=== PATIENT | female | born 1990 | race Caucasian/White ===

== ENCOUNTER → 2016-09-23 | Outpatient (CLI) | payer OTHER ==
--- NOTE | 2016-09-23 16:13 | US ---
EXAMINATION TYPE: US OB anatomy transabd DATE OF EXAM: 09/23/2016 3:40 PM COMPARISON: In pacs HISTORY: 25-year-old female Small for dates, 2, para 1 TECHNIQUE: Transabdominal (TA) scanning. FINDINGS: EXAM MEASUREMENTS: GESTATIONAL AGE / DATING Physician Established: (37 weeks/0 days) EDC: 10/14/2016 Dates by LMP: (37 weeks/0 days) EDC: 10/14/2016 Dates by First Scan: (37 weeks/0 days) EDC: 10/07/2016 Dates by Current Scan for: (36 weeks/0 days) EDC: 10/21/2016 SURVEY IUP: Single PLACENTA: Fundal / Anterior PREVIA: No previa BRITTANY: 14.0 cm Normal CERVICAL LENGTH (transabdominal: norm > 3.0cm): 3.3 cm BIOMETRY PRESENTATION: Vertex BPD: 8.9 cm 36 weeks / 1 days HC: 31.6 cm 35 weeks / 4 days AC: 31.6 cm 35 weeks / 4 days FL: 7.1 cm 36 weeks / 3 days ESTIMATED WEIGHT IN GRAMS: 2771 grams ESTIMATED WEIGHT IN LBS/OZS: 6 lbs. 2 oz. WEIGHT PERCENTAGE BASED ON ESTABLISHED DATE: 25 % HC/AC: 1.00 Normal FL/AC: 22% Normal HEART RATE: 142 bpm RHYTHM: Normal ANATOMY SEEN (within normal limits): Midline Falx Cavus Septi Pellucidi Stomach Nose / Lips Diaphragm Bladder Three Vessel Cord ANATOMY NOT SEEN OR SUBOPTIMALLY VISUALIZED: Due to advanced age, 3rd trimester Lateral Vent (< 1 cm) Cisterna Magna (< 1.1 cm) Cerebellum (varies with age) Choroid Plexus (bilateral) Four Chamber Heart Outflow Tract: RVOT/LVOT Situs Kidneys (only one seen. The second is shadowed out) Cord Insert Longitudinal Spine Transverse Spine Arms (bilateral) Legs (bilateral) IMPRESSION: 1. Single live intrauterine with estimated gestational age of 37 weeks 0 days by LMP. [facility] ultrasound biometry is concordant (36 weeks 0 days) placing the child at the 25th percentile for w eight. 2. A number of structures on the survey were either not seen or were suboptimally visualized du e to relatively advanced age. See above.
== END | disposition home or self-care (01) ==
LOC: RADUSWWP 15:11
PROVIDERS: ATTEND Obstetrics & Gynecology
DX: O36.5930 Maternal care for other known or suspected poor fetal growth, third trimester, not applicable or unspecified (principal); Z3A.37 37 weeks gestation of pregnancy
CPT/HCPCS: 76805

== ENCOUNTER 2016-10-11 14:13 | Inpatient (IN) | payer OTHER ==
[2016-10-11] MEDS ORDERED: CARBOPROST TROMETHAMINE 250 MCG/ML 1 ML AMP IM PRN (14:46)
[2016-10-11] MEDS ORDERED: METHYLERGONOVINE 0.2 MG/ML 1 ML AMP IM PRN (14:46)
[2016-10-11] MEDS ORDERED: LIDOCAINE 1% (PF) 10 MG/ML (30 ML SDV) SQ PRN (14:46)
[2016-10-11] MEDS ORDERED: OXYTOCIN 10 UNIT/ML 1 ML VIAL IM PRN (14:46)
[2016-10-11] MEDS ORDERED: TERBUTALINE 1 MG/ML VIAL SQ PRN (14:46)
[2016-10-11] MEDS ORDERED: LACTATED RINGERS 1,000 ML IV SCH (15:00)
[2016-10-11] MEDS ORDERED: diphenhydrAMINE 50 MG/ML 1 ML VIAL IVP PRN (15:27)
[2016-10-11] MEDS ORDERED: diphenhydrAMINE 25 MG CAP PO PRN (15:27)
[2016-10-11] MEDS ORDERED: Acetaminophen-Codeine 300-30mg TAB PO PRN ×2 (15:27)
[2016-10-11] MEDS ORDERED: HYDROCORTISONE 2.5% RECTAL CREAM 30 GM TUBE RECTAL PRN (15:27)
[2016-10-11] MEDS ORDERED: SIMETHICONE 80 MG CHEWABLE PO PRN (15:27)
[2016-10-11] MEDS ORDERED: ZOLPIDEM 5 MG TAB PO PRN (15:27)
[2016-10-11] MEDS ORDERED: ACETAMINOPHEN TAB 325 MG TAB PO PRN (15:27)
[2016-10-11] MEDS ORDERED: WITCH HAZEL 1 EACH MED..PAD TOPICAL PRN (15:27)
[2016-10-11] MEDS ORDERED: LANOLIN CREAM 5 GM TUBE TOPICAL PRN (15:27)
[2016-10-11] MEDS ORDERED: BENZOCAINE/MENTHOL SPRAY 1 GM/SPRAY AEROSOL TOPICAL PRN (15:27)
[2016-10-11] MEDS ORDERED: BISACODYL 10 MG SUPP RECTAL PRN (15:27)
[2016-10-11] MEDS ORDERED: OXYTOCIN 30 UNITS/500 ML NS 30 UNIT in SALINE 1 500ML.BAG IV SCH (15:30)
--- NOTE | 2016-10-11 15:34 | P.HPOB ---
History of Present Illness H&P Date: 10/11/16 Chief Complaint: Contractions This patient is a pleasant 25-year-old 2 para 1 female estimated date of confinement 10/14/2016 estimated gestational age 39-4/7 weeks who presents to labor and delivery with complaints of contractions. Patient is here earlier spinal was 2 summary is dilated and now returns 6 cm dilated in active labor. care has been uncomplicated with the exception of surveillance for small for gestational age. She denies any bleeding or leaking of fluid. Review of Systems Constitutional: Denies chills, Denies fever Ears, nose, mouth and throat: Denies headache, Denies sore throat Cardiovascular: Denies chest pain, Denies shortness of breath Respiratory: Denies cough Gastrointestinal: Reports heartburn Genitourinary: Reports Menstruation: Reports amenorrhea Musculoskeletal: Denies myalgias Neurological: Denies numbness, Denies weakness Past Medical History Past Medical History: No Reported History Additional Past Medical History / Comment(s): viral eye infection - vision loss right History of Any Multi-Drug Resistant Organisms: None Reported Past Surgical History: Adenoidectomy Past Anesthesia/Blood Transfusion Reactions: No Reported Reaction Past Psychological History: No Psychological Hx Reported Smoking Status: Never smoker Past Alcohol Use History: Occasional Past Drug Use History: None Reported Medications and Allergies Home Medications Medication Instructions Recorded Confirmed Type Pnv with Ca,No.72/Iron/FA 1 each PO 10/11/16 History [ Plus Tablet] Allergies Allergy/AdvReac Type Severity Reaction Status Date / Time No Known Allergies Allergy Verified 10/11/16 09:18 Exam - Vital Signs Vital signs: Intake and Output 10/11/16 10/11/16 10/11/16 06:59 14:59 22:59 Other: Weight 88.451 kg Patient Weight 10/12/16 06:59 Weight 88.451 kg - OBG Physical Exam Abdomen: bowel sounds normal, no diffuse tenderness, no bruit present, no guarding noted, no hepatomegaly, no splenomegaly, no mass Vulva: both: normal Vagina: normal moisture, no discharge Cervix: Cervix is 9 cm dilated completely effaced and 0 station. Uterus: enlarged (Fundal height is consistent with a term .) Results blood work shows she is oh positive, rubella immune, RPR nonreactive, HIV nonreactive, hepatitis B is negative, ultrasounds have been normal with the exception of small for gestational age, group B strep was negative, Glucola was normal,. Assessment and Plan (1) Normal labor and delivery Narrative/Plan: This is a pleasant 25-year-old 2 para 1 female 39-4/7 weeks gestation who presents in active labor. Plan is anticipate normal spontaneous vaginal delivery. Status: Acute
--- NOTE | 2016-10-11 15:36 | P.PROBDLV ---
Vaginal Delivery Note - . Vaginal Delivery Note: Normal spontaneous vaginal delivery viable female infant Apgars 9 and 9 delivery time is 1511 hrs. Please see dictated H&P for intimate details of this patient's admission. Brief summary is a pleasant 25-year-old 2 para 1 female 39-4/7 weeks gestation admitted to labor and delivery in active labor. Patient's 9 centers dilated has artificial rupture membranes for clear fluid. She quickly goes to complete pushes the head to the perineum. The posterior perineum was infiltrated with 1% lidocaine and a second-degree episiotomy is made. We then have controlled delivery of 's head over the perineum. Mouth and nares are bulb suctioned and there is no evidence of a nuchal cord. Gentle downward traction we then have delivery anterior posterior shoulder and rest this ' s body. Is a vigorous viable female infant Apgars 9 and 9 delivery time is 1511 hrs. After delivery of the infant the umbilical cord is doubly clamped and cut and appears to be trivascular. Placenta is spontaneously delivered intact. Inspection of the perineum shows a second-degree laceration which is repaired with 3-0 Vicryl usual fashion. Good reapproximation is noted. Estimated blood loss is 150 mL. and mother are stable delivery room. There are no complications. All counts are correct 3.
[2016-10-11] MEDS: IBUPROFEN 600 MG TAB PO PRN ×2 (15:50→23:50)
[2016-10-11 17:42] VITALS: BMI 35.6
[2016-10-11] MEDS: SENNOSIDES-DOCUSATE SODIUM 1 EACH TAB PO SCH (20:00)
--- NOTE | 2016-10-12 06:25 | P.PNOBGVD ---
Subjective - Subjective Patient reports: Reports appetite normal, Reports voiding normally, Reports pain well controlled, Reports ambulating normally : doing well Objective - Latest Vital Signs Latest vital signs: Vital Signs Temp Pulse Resp BP Pulse Ox 10/11/16 20:00 98.1 F 72 18 132/68 10/11/16 18:16 76 20 134/62 10/11/16 17:46 79 20 140/71 10/11/16 17:16 71 20 133/79 10/11/16 16:46 66 20 134/84 10/11/16 16:31 97.8 F 60 20 143/78 10/11/16 16:16 72 20 139/81 10/11/16 15:46 70 20 132/75 10/11/16 15:31 72 20 134/66 10/11/16 15:00 96.7 F L 76 20 157/67 97 Intake and Output 10/11/16 10/11/16 10/12/16 14:59 22:59 06:59 Other: # Voids 1 Weight 88.451 kg 88.451 kg Patient Weight 10/12/16 06:59 Weight 88.451 kg - Exam Lungs: bilateral: normal Chest: Normal S1, Normal S2 Extremities: Present: normal Abdomen: Present: normal appearance, soft Uterus: Present: normal, firm Assessment and Plan (1) Normal labor and delivery Narrative/Plan: day #1. Patient is resting without complaints. She wishes to go home today. Vital signs are stable she is afebrile. Uterus is firm nontender she's having normal lochia. My impression this is a normal course. Plan is to continue routine care discharge home later today. Current Visit: Yes Status: Acute Code(s): O80 - ENCOUNTER FOR FULL-TERM UNCOMPLICATED DELIVERY SNOMED Code(s): 09597502
--- NOTE | 2016-10-12 06:27 | P.DS ---
Providers Date of admission: 10/11/16 14:29 Expected date of discharge: 10/12/16 Attending physician: Mac Carrasquillo Primary care physician: Stated None - Discharge Diagnosis(es) (1) Normal labor and delivery Current Visit: Yes Status: Acute Hospital Course: Please see dictated H&P for intimate details of this patient's admission. Brief summary this is a pleasant 25-year-old 2 para 1 female 39-4/7 weeks gestation admitted to labor and delivery in labor quickly goes on to have a vaginal delivery viable female . Please see dictated delivery note. day 1 patient's feeling well desires to go home. Patient's felt be stable to discharge home to follow up with me in 6 weeks. Procedures: Normal spontaneous vaginal delivery. Patient Condition at Discharge: Good Plan - Discharge Summary New Discharge Prescriptions: Acetaminophen-Codeine 300-30mg [Tylenol w/codeine #3] 1 each PO Q4HR PRN #30 tab PRN Reason: Mild Pain exceeding Tylenol Ibuprofen [Motrin] 600 mg PO Q6HR PRN #40 tab PRN Reason: Mild Pain Or Fever >= 100.5 Discharge Medication List Pnv with Ca,No.72/Iron/FA [ Plus Tablet] 1 each PO DAILY 10/11/16 [ History] Acetaminophen-Codeine 300-30mg [Tylenol w/codeine #3] 1 each PO Q4HR PRN #30 tab 10/12/16 [Rx] Ibuprofen [Motrin] 600 mg PO Q6HR PRN #40 tab 10/12/16 [Rx] Follow up Appointment(s)/Referral(s): Mac Carrasquillo MD [STAFF PHYSICIAN] - 6 Weeks Patient Instructions/Handouts: Vaginal Delivery (DC) Activity/Diet/Wound Care/Special Instructions: No intercourse or anything per vagina for 6 weeks. Please call if any fever, chills, excessive vaginal bleeding, and/or abdominal pain. Discharge Disposition: HOME SELF-CARE
[2016-10-12] MEDS: SENNOSIDES-DOCUSATE SODIUM 1 EACH TAB PO SCH (08:59)
[2016-10-12] MEDS: IBUPROFEN 600 MG TAB PO PRN (12:35)
[2016-10-12 16:04] VITALS: BP 121/74; PULSE 65; RESP 16; TEMP 98.4
== END 2016-10-12 17:33 | disposition home or self-care (01) | DRG 775 ==
LOC: FBPOP 14:13 → 4FBP 14:29
PROVIDERS: ADMIT Obstetrics & Gynecology; ATTEND Obstetrics & Gynecology
PROC: 10E0XZZ Delivery of Products of Conception, External Approach (ICD-10-PCS; principal; 2016-10-11)
PROC: 0KQM0ZZ Repair Perineum Muscle, Open Approach (ICD-10-PCS; 2016-10-11)
PROC: 10907ZC Drainage of Amniotic Fluid, Therapeutic from Products of Conception, Via Natural or Artificial Opening (ICD-10-PCS; 2016-10-11)
DX: O70.1 Second degree perineal laceration during delivery (principal); Z37.0 Single live birth; H54.61 Unqualified visual loss, right eye, normal vision left eye; R12 Heartburn; O99.62 Diseases of the digestive system complicating childbirth; Z3A.39 39 weeks gestation of pregnancy; Z86.19 Personal history of other infectious and parasitic diseases; Z86.69 Personal history of other diseases of the nervous system and sense organs
CPT/HCPCS: 88307